=== PATIENT | female | born 2000 | race Caucasian/White ===

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

== ENCOUNTER 2023-06-28 18:53 | Emergency (ER) | payer MEDICAID ==
--- NOTE | 2023-06-28 19:23 | ED ---
URI HPI - General Chief Complaint: Upper Respiratory Infection Stated Complaint: chest pains/fabrizio Time Seen by Provider: 06/28/23 19:13 Source: patient Mode of arrival: ambulatory Limitations: no limitations - History of Present Illness Initial Comments: 22-year-old transgender male presenting with chief complaint cough and rib pain. They state that this has been ongoing for 3 days. They admit to sore throat and congestion. Pain is sharp in nature and worse with coughing and deep breaths. No fevers. No nausea vomiting or abdominal pain. No lower extremity swelling. No recent surgery or long travel. No dizziness. - Related Data Home Medications Medication Instructions Recorded Confirmed Citalopram Hydrobromide [CeleXA] 20 mg PO DAILY 10/07/19 10/07/19 Levothyroxine Sodium [Synthroid] 88 mcg PO DAILY 10/07/19 10/07/19 Multivitamins, Thera [Multivitamin 1 tab PO DAILY 10/07/19 10/07/19 (formulary)] Previous Rx's Medication Instructions Recorded Dicyclomine [Bentyl] 20 mg PO QID #15 tablet 04/27/21 methylPREDNISolone Dose Pack 4 mg PO DIRECTED #1 packet 06/28/23 [Medrol Dose Pack] Allergies Allergy/AdvReac Type Severity Reaction Status Date / Time No Known Allergies Allergy Verified 06/28/23 19:00 Review of Systems ROS Statement: Those systems with pertinent positive or pertinent negative responses have been documented in the HPI. ROS Other: All systems not noted in ROS Statement are negative. Past Medical History Past Medical History: No Reported History Additional Past Medical History / Comment(s): meningitis History of Any Multi-Drug Resistant Organisms: None Reported Past Surgical History: Ear Surgery Past Psychological History: ADD/ADHD, Depression Smoking Status: Current every day smoker Past Alcohol Use History: None Reported Past Drug Use History: None Reported General Exam Limitations: no limitations General appearance: alert, in no apparent distress Head exam: Present: atraumatic, normocephalic Eye exam: Present: normal appearance Neck exam: Present: normal inspection. Absent: meningismus Respiratory exam: Present: normal lung sounds bilaterally, chest wall tenderness. Absent: respiratory distress, wheezes, rales, rhonchi, stridor Cardiovascular Exam: Present: regular rate, normal rhythm, normal heart sounds. Absent: systolic murmur, diastolic murmur, rubs, gallop, clicks Extremities exam: Absent: pedal edema Neurological exam: Present: alert, oriented X3 Psychiatric exam: Present: normal affect, normal mood Skin exam: Present: warm, dry Course Vital Signs 06/28/23 06/28/23 06/28/23 18:57 19:15 21:40 Temperature 98.7 F 99.3 F Pulse Rate 104 H 88 Respiratory 20 18 18 Rate Blood Pressure 109/71 O2 Sat by Pulse 100 99 Oximetry 06/28/23 22:22 Temperature 98.6 F Pulse Rate 97 Respiratory 18 Rate Blood Pressure 101/66 O2 Sat by Pulse Oximetry Medical Decision Making - Medical Decision Making Was pt. sent in by a medical professional or institution (, PA, MANAGER GOLF, urgent care, hospital, or correction...) When possible be specific @ -No Did you speak to anyone other than the patient for history (EMS, parent, family, police, friend...)? What history was obtained from this source @ -No Did you review nursing and triage notes (agree or disagree)? Why? @ -I reviewed and agree with nursing and triage notes Were old charts reviewed (outside hosp., previous admission, EMS record, old EKG, old radiological studies, urgent care reports/EKG's, correction records)? Report findings @ -No old charts were reviewed Differential Diagnosis (chest pain, altered mental status, abdominal pain women, abdominal pain men, vaginal bleeding, weakness, fever, dyspnea, syncope, headache, dizziness, GI bleed, back pain, seizure, CVA, palpatations, mental health, musculoskeletal)? @ -Differential includes influenza, RSV, COVID, group A strep, pneumonia, bronchitis, pleurisy, pulmonary embolism, this is not an all-inclusive list EKG interpreted by me (3pts min.). @ -As above X-rays interpreted by me (1pt min.). @ -Chest x-ray shows no acute process. CT interpreted by me (1pt min.). @ -None done U/S interpreted by me (1pt. min.). @ -None done What testing was considered but not performed or refused? (CT, X-rays, U/S, labs)? Why? @ -None What meds were considered but not given or refused? Why? @ -None Did you discuss the management of the patient with other professionals (professionals i.e. , PA, MANAGER GOLF, lab, RT, psych nurse, director of social services, tool crib clerk, teacher, mechanical engineering officer, watch case polisher)? Give summary @ -No Was smoking cessation discussed for >3mins.? @ -No Was critical care preformed (if so, how long)? @ -No Were there social determinants of health that impacted care today? How? (Homelessness, low income, unemployed, alcoholism, drug addiction, transportation, low edu. Level, literacy, decrease access to med. care, chcf, rehab)? @ -No Was there de-escalation of care discussed even if they declined (Discuss DNR or withdrawal of care, Hospice)? DNR status @ -No What co-morbidities impacted this encounter? (DM, HTN, Smoking, COPD, CAD, Cancer, CVA, ARF, Chemo, Hep., AIDS, mental health diagnosis, sleep apnea, morbid obesity)? @ -None Was patient admitted / discharged? Hospital course, mention meds given and route, prescriptions, significant lab abnormalities, going to OR and other pertinent info. @ -22-year-old transgender male presenting with chief complaint of cough and rib pain. History and physical exam are conducted. Pain is worse on palpation. No lower extremity swelling. Heart and lungs are clear to auscultation. Negative for influenza, RSV, COVID, group A strep. Chest x-ray shows no acute process. Patient is treated with Toradol, Decadron, Tylenol, and IV fluids. Symptoms seem to clinically align with bronchitis and/or pleurisy. they are educated on today's findings and supportive management at home. Provided with Medrol Dosepak. Discharged home. Follow-up with PCP. Report back to ER with any new or worsening symptoms. Discussed return parameters and answered all questions. Patient conveyed verbal understanding and agreed to the plan. I discussed this case in detail with my attending Dr. Roldan Undiagnosed new problem with uncertain prognosis? @ -No Drug Therapy requiring intensive monitoring for toxicity (Heparin, Nitro, Insulin, Cardizem)? @ -No Were any procedures done? @ -No Diagnosis/symptom? @ -Bronchitis Acute, or Chronic, or Acute on Chronic? @ -Acute Uncomplicated (without systemic symptoms) or Complicated (systemic symptoms)? @ -Uncomplicated Side effects of treatment? @ -No Exacerbation, Progression, or Severe Exacerbation? @ -No Poses a threat to life or bodily function? How? (Chest pain, [place], [place], pneumonia, PE, COPD, DKA, ARF, appy, cholecystitis, CVA, Diverticulitis, Homicidal, Suicidal, threat to staff... and all critical care pts) @ -Low likelihood - Lab Data Lab Results 06/28/23 06/28/23 Range/Units 19:23 19:23 Influenza Type A (PCR) Not Detected (Not Detectd) Influenza Type B (PCR) Not Detected (Not Detectd) RSV (PCR) Not Detected (Not Detectd) SARS-CoV-2 (PCR) Not Detected (Not Detectd) Group A Strep (PCR) NOT DETECTED (Not Detectd) Disposition Clinical Impression: Bronchitis Disposition: HOME SELF-CARE Condition: Good Instructions (If sedation given, give patient instructions): Acute Bronchitis (ED) Additional Instructions: Follow-up with PCP. Report back to ER with any new or worsening symptoms. Prescriptions: methylPREDNISolone Dose Pack [Medrol Dose Pack] 4 mg PO DIRECTED #1 packet Is patient prescribed a controlled substance at d/c from ED?: No Referrals: Kenya Lamas DO [Primary Care Provider] - 1-2 days Time of Disposition: 22:05
[2023-06-28 19:26] VITALS: RESP 18
[2023-06-28] MEDS: KETOROLAC 15 MG/ML 1 ML VIAL IM STA (20:21)
[2023-06-28] MEDS: DEXAMETHASONE SOD PHOSPHATE 10 MG/ML 1 ML VIAL IM STA (20:23)
--- NOTE | 2023-06-28 20:57 | XR ---
EXAMINATION TYPE: XR chest 2V DATE OF EXAM: 06/28/2023 8:28 PM CLINICAL INDICATION:Unknown, 22 years old with history of cough; [facility] COMPARISON: None TECHNIQUE: XR chest 2V. Frontal and lateral views of the chest.. FINDINGS: Lines/Tubes/Devices: No indwelling lines are seen. Heart/mediastinum: Heart size is normal. Mediastinum appears normal. Pulmonary vascularity: Not increased, Lungs/Pleura: There is no evidence of pleural effusion, focal consolidation, or pneumothorax. Musculoskeletal: No acute osseous abnormality demonstrated in the limits of the exam. Other findings: None. IMPRESSION: No acute cardiopulmonary abnormality.
[2023-06-28] MEDS: ACETAMINOPHEN TAB 500 MG TAB PO STA (21:28)
[2023-06-28] MEDS: SODIUM CHLORIDE 0.9% 500 ML 500 ML IV ONE (21:29)
[2023-06-28 22:46] VITALS: BP 101/66; PULSE 97; TEMP 98.6
== END 2023-06-28 22:22 | disposition home or self-care (01) ==
LOC: EDSEX → EC 18:53 → EDSEX 18:53 → EC 22:22
DX: J40 Bronchitis, not specified as acute or chronic (principal); F17.200 Nicotine dependence, unspecified, uncomplicated
CPT/HCPCS: 99285; 96372 ×2; 87651; 87636; 71046; 96360; J1100; J1885; 96361

== ENCOUNTER 2023-09-01 18:33 | Emergency (ER) | payer MEDICAID, BC ==
[2023-09-01 19:00] VITALS: TEMP 98.4
--- NOTE | 2023-09-01 19:42 | ED ---
Headache HPI - General Source: RN notes reviewed Mode of arrival: ambulatory Limitations: no limitations <Hui Hoskins - Last Filed: 09/01/23 19:40> <Kane Peter - Last Filed: 09/02/23 21:24> - General Chief Complaint: Headache Stated Complaint: Headache Time Seen by Provider: 09/01/23 19:40 - History of Present Illness Initial Comments: Quick [id number] female with history of meningitis presenting to the ER with chief complaint of headache x 1 week. Patient was sent by urgent care for CT scan of head as they told her they were concerned for brain aneurysm or bleed. Patient reports she has been having severe left-sided headaches for 1 month but for the past week it has gotten worse and is radiating into her neck. She also reports the entire left side of her face is numb. Denies fevers, URI symptoms. (Hui Hoskins) 23-year-old female with chronic headache history. History of headaches since a child. She has had a persistent 1 week left-sided headache. This was slow in onset, not the worst headache of her life but is more severe than typical. Patient was sent for from urgent care for evaluation. Patient does report that she had some facial numbness earlier in the week but this is resolved. Disregard the previous note that her face is persistently numb. He has no limb weakness or numbness. (Kane Peter) - Related Data Home Medications Medication Instructions Recorded Confirmed Citalopram Hydrobromide [CeleXA] 20 mg PO DAILY 10/07/19 10/07/19 Levothyroxine Sodium [Synthroid] 88 mcg PO DAILY 10/07/19 10/07/19 Multivitamins, Thera [Multivitamin 1 tab PO DAILY 10/07/19 10/07/19 (formulary)] Previous Rx's Medication Instructions Recorded Dicyclomine [Bentyl] 20 mg PO QID #15 tablet 04/27/21 methylPREDNISolone Dose Pack 4 mg PO DIRECTED #1 packet 06/28/23 [Medrol Dose Pack] Allergies Allergy/AdvReac Type Severity Reaction Status Date / Time No Known Allergies Allergy Verified 09/01/23 18:49 Review of Systems ROS Other: All systems not noted in ROS Statement are negative. <Hui Hoskins - Last Filed: 09/01/23 19:40> ROS Other: All systems not noted in ROS Statement are negative. <Kane Peter - Last Filed: 09/02/23 21:24> ROS Statement: Those systems with pertinent positive or pertinent negative responses have been documented in the HPI. Past Medical History Past Medical History: No Reported History Additional Past Medical History / Comment(s): meningitis History of Any Multi-Drug Resistant Organisms: None Reported Past Surgical History: Ear Surgery Past Psychological History: ADD/ADHD, Depression Smoking Status: Current every day smoker Past Alcohol Use History: None Reported Past Drug Use History: None Reported <Hui Hoskins - Last Filed: 09/01/23 19:40> General Exam Limitations: no limitations <Hui Hoskins - Last Filed: 09/01/23 19:40> General appearance: alert, in no apparent distress Head exam: Present: atraumatic, normocephalic Eye exam: Present: normal appearance, PERRL, EOMI ENT exam: Present: normal exam Neck exam: Present: normal inspection. Absent: tenderness, meningismus Respiratory exam: Present: normal lung sounds bilaterally. Absent: respiratory distress, wheezes Cardiovascular Exam: Present: regular rate, normal rhythm GI/Abdominal exam: Present: soft. Absent: distended, tenderness Extremities exam: Present: normal inspection, normal capillary refill. Absent: pedal edema Neurological exam: Present: alert, oriented X3, CN II-XII intact. Absent: motor sensory deficit Psychiatric exam: Present: normal affect, normal mood Skin exam: Present: warm, dry, intact. Absent: cyanosis, diaphoretic <Kane Peter - Last Filed: 09/02/23 21:24> - General Exam Comments Initial Comments: Visual Physical Exam Vital signs reviewed General: Well-appearing, nontoxic, no acute distress. Head: Normocephalic, atraumatic Eyes: PERRLA, EOMI ENT: Airway patent Chest: Nonlabored breathing Skin: No visual rash, normal skin tone Neuro: Alert and oriented 3 Musculoskeletal: No gross abnormalities (Hui Hoskins) Course Vital Signs 09/01/23 09/01/23 09/01/23 18:46 22:46 23:35 Temperature 98.4 F Pulse Rate 98 85 86 Respiratory 18 17 18 Rate Blood Pressure 113/76 117/70 112/60 O2 Sat by Pulse 100 100 100 Oximetry Medical Decision Making <GatoHui - Last Filed: 09/01/23 19:40> - Lab Data Result diagrams: 09/01/23 22:33 09/01/23 22:33 <AnnelieseKane maldonado Mady - Last Filed: 09/02/23 21:24> - Medical Decision Making I completed the quick note portion of this chart signed Hui Hoskins PA-C (Hui Hoskins) Was pt. sent in by a medical professional or institution ([facility] [place], HEAD PIECE ASSEMBLER, urgent care, hospital, or chcf...) When possible be specific @ -No Did you speak to anyone other than the patient for history (EMS, parent, family, police, friend...)? What history was obtained from this source @ -No Did you review nursing and triage notes (agree or disagree)? Why? @ -I reviewed and agree with nursing and triage notes Were old charts reviewed (outside hosp., previous admission, EMS record, old EKG, old radiological studies, urgent care reports/EKG's, chcf records)? Report findings @ -No old charts were reviewed Differential Headache: Migraine, tension, cluster, carbon monoxide, central venous thrombosis, pension karma temporal arteritis, acute closure glaucoma, intercranial hemorrhage, mastoiditis, sinusitis, head injury, this is not meant to be an all-inclusive list. EKG interpreted by me (3pts min.). @ -As above X-rays interpreted by me (1pt min.). @ -None done CT interpreted by me (1pt min.). @CT brain negative for intracranial hemorrhage or mass effect U/S interpreted by me (1pt. min.). @ -None done What testing was considered but not performed or refused? (CT, X-rays, U/S, labs)? Why? @ -None What meds were considered but not given or refused? Why? @ -None Did you discuss the management of the patient with other professionals (professionals i.e. [facility] [place], HEAD PIECE ASSEMBLER, lab, RT, psych nurse, child protective services social worker, solar lab technician, teacher, senior compliance officer, case repairer)? Give summary @ -No Was smoking cessation discussed for >3mins.? @ -No Was critical care preformed (if so, how long)? @ -No Were there social determinants of health that impacted care today? How? (Ho melessness, low income, unemployed, alcoholism, drug addiction, transportation, low edu. Level, literacy, decrease access to med. care, skilled nursing, rehab)? @ -No Was there de-escalation of care discussed even if they declined (Discuss DNR or withdrawal of care, Hospice)? DNR status @ -No What co-morbidities impacted this encounter? (DM, HTN, Smoking, COPD, CAD, Cancer, CVA, ARF, Chemo, Hep., AIDS, mental health diagnosis, sleep apnea, morbid obesity)? @ -Headaches Was patient admitted / discharged? Hospital course, mention meds given and route, prescriptions, significant lab abnormalities, going to OR and other pertinent info. @ -[23-year-old female with chronic headache presenting with chief complaint of left-sided headache. No alarming features on history and physical. Patient was sent from urgent care for evaluation. CT was ordered and was negative for intracranial hemorrhage or mass effect. Normal laboratory testing. Patient reevaluated and feeling better after medical treatment. She should follow-up with her primary and will likely require further evaluation as an outpatient. Undiagnosed new problem with uncertain prognosis? @ -No Drug Therapy requiring intensive monitoring for toxicity (Heparin, Nitro, Insulin, Cardizem)? @ -No Were any procedures done? @ -No Diagnosis/symptom? @ -[Chronic headache Acute, or Chronic, or Acute on Chronic? @ -Chronic Uncomplicated (without systemic symptoms) or Complicated (systemic symptoms)? @ -Default Side effects of treatment? @ -No Exacerbation, Progression, or Severe Exacerbation? @ -No Poses a threat to life or bodily function? How? (Chest pain, [place], [place], pneumonia, PE, COPD, DKA, ARF, appy, cholecystitis, CVA, Diverticulitis, Homicidal, Suicidal, threat to staff... and all critical care pts) @ -No (Kane Peter) - Lab Data Lab Results 09/01/23 09/01/23 Range/Units 22:33 22:33 WBC 6.8 (3.8-10.6) k/uL RBC 4.15 (3.80-5.40) m/uL Hgb 11.6 (11.4-16.0) gm/dL Hct 35.9 (34.0-46.0) % MCV 86.5 (80.0-100.0) fL MCH 28.0 (25.0-35.0) pg MCHC 32.4 (31.0-37.0) g/dL RDW 13.4 (11.5-15.5) % Plt Count 301 (150-450) k/uL MPV 7.7 Neutrophils % 50 % Lymphocytes % 37 % Monocytes % 6 % Eosinophils % 4 % Basophils % 1 % Neutrophils # 3.4 (1.3-7.7) k/uL Lymphocytes # 2.5 (1.0-4.8) k/uL Monocytes # 0.4 (0-1.0) k/uL Eosinophils # 0.3 (0-0.7) k/uL Basophils # 0.1 (0-0.2) k/uL Sodium 137 (137-145) mmol/L Potassium 3.7 (3.5-5.1) mmol/L Chloride 111 H (98-107) mmol/L Carbon Dioxide 21 L (22-30) mmol/L Anion Gap 5 mmol/L BUN 12 (7-17) mg/dL Creatinine 0.59 (0.52-1.04) mg/dL Est GFR (CKD-EPI)AfAm >90 (>60 ml/min/1.73 sqM) Est GFR (CKD-EPI)NonAf >90 (>60 ml/min/1.73 sqM) Glucose 86 (74-99) mg/dL Calcium 8.5 (8.4-10.2) mg/dL Total Bilirubin 0.5 (0.2-1.3) mg/dL AST 20 (14-36) U/L ALT 11 (4-34) U/L Alkaline Phosphatase 56 (38-126) U/L Total Protein 6.7 (6.3-8.2) g/dL Albumin 3.9 (3.5-5.0) g/dL Disposition <Hui Hoskins - Last Filed: 09/01/23 19:40> Is patient prescribed a controlled substance at d/c from ED?: No Time of Disposition: 23:21 <Kane Peter - Last Filed: 09/02/23 21:24> Clinical Impression: Headache Disposition: HOME SELF-CARE Condition: Good Instructions (If sedation given, give patient instructions): Acute Headache (ED) Referrals: Kenya Lamas DO [Primary Care Provider] - 1-2 days
--- NOTE | 2023-09-01 21:35 | CT ---
EXAMINATION TYPE: CT brain wo con CT DLP: 1095.6 mGycm, Automated exposure control for dose reduction was used. DATE OF EXAM: 09/01/2023 8:36 PM COMPARISON: None.. CLINICAL INDICATION:Female, 23 years old with history of Headache, left sided numbness, HEADACHE TECHNIQUE: Brain: Axial CT images of the brain were obtained with coronal and sagittal reformats created and rev iewed. Contrast used: None. Oral contrast used: None. FINDINGS: Extra-axial spaces: No abnormal extra-axial fluid collections. Basilar cisterns are patent. Ventricular system: Within normal limits. Cerebral parenchyma: No increased attenuation to suggest acute intraparenchymal hemorrhage. The gra y-white matter interface appears maintained. No significant atrophy. White matter unremarkable by C T. Cerebellum: No acute abnormality. Mass effect: No evidence of mass effect or midline shift. Intracranial vasculature: Unremarkable Soft tissues: No acute or concerning abnormality. Visualized orbits: Orbital contents appear grossly intact. Calvarium/osseous structures: No evidence of calvarial fracture. Partially seen is incomplete fusion along the midline arch posteriorly at C1. Paranasal sinuses and mastoid air cells: Clear. MRI is more sensitive for detecting acute processes such as infarct, and may be considered if clinica lly warranted. IMPRESSION: No acute intracranial CT abnormality.
[2023-09-01] MEDS: KETOROLAC 15 MG/ML 1 ML VIAL IVP STA (22:41)
[2023-09-01] MEDS: SODIUM CHLORIDE 0.9% 1,000 ML IV ONE (22:41)
[2023-09-01] MEDS: METOCLOPRAMIDE 5 MG/ML 2 ML VIAL IVP STA (22:42)
[2023-09-01 22:46] LABS: Basophils # (A) 0.1 k/uL (0-0.2); Basophils % (A) 1 %; Eosinophils # (A) 0.3 k/uL (0-0.7); Eosinophils % (A) 4 %; HCT 35.9 % (34.0-46.0); HGB 11.6 gm/dL (11.4-16.0); Lymphocytes # (A) 2.5 k/uL (1.0-4.8); Lymphocytes % (A) 37 %; MCHC 32.4 g/dL (31.0-37.0); MCV 86.5 fL (80.0-100.0); Mean Platelet Volume 7.7; Monocytes # (A) 0.4 k/uL (0-1.0); Monocytes % (A) 6 %; Neutrophils # (A) 3.4 k/uL (1.3-7.7); Neutrophils % (A) 50 %; Platelet Count 301 k/uL (150-450); RBC 4.15 m/uL (3.80-5.40); RDW 13.4 % (11.5-15.5); WBC 6.8 k/uL (3.8-10.6)
[2023-09-01 23:09] LABS: ALT 11 U/L (4-34); AST 20 U/L (14-36); African American GFR (CKD) >90 (>60 ml/min/1.73 sqM); Albumin 3.9 g/dL (3.5-5.0); Alkaline Phosphatase 56 U/L (38-126); Anion Gap 5 mmol/L; Blood Urea Nitrogen 12 mg/dL (7-17); Calcium 8.5 mg/dL (8.4-10.2); Carbon Dioxide 21 mmol/L (22-30); Chloride 111 mmol/L (98-107); Glucose 86 mg/dL (74-99); Non-African American GFR(CKD) >90 (>60 ml/min/1.73 sqM); Potassium 3.7 mmol/L (3.5-5.1); Sodium 137 mmol/L (137-145); Total Bilirubin 0.5 mg/dL (0.2-1.3); Total Protein 6.7 g/dL (6.3-8.2)
[2023-09-01 23:59] VITALS: BP 112/60; PULSE 86; RESP 18
== END 2023-09-01 23:36 | disposition home or self-care (01) ==
LOC: EC 18:33
DX: G89.29 Other chronic pain (principal); R51.9 Headache, unspecified; F17.200 Nicotine dependence, unspecified, uncomplicated
CPT/HCPCS: 36415; 80053; 85025; 70450; 99284; 96374; 96375; 96361; J2765; J1885

== ENCOUNTER → 2023-09-22 | Outpatient (CLI) | payer MEDICAID, BC ==
--- NOTE | 2023-09-22 10:50 | MR ---
EXAMINATION TYPE: MR brain wo/w con DATE OF EXAM: 09/22/2023 COMPARISON: CT brain 09/01/2023 HISTORY: Headaches, tremors, facial numbness CONTRAST: Performed utilizing 6 mL intravenous Gadavist gadolinium contrast. TECHNIQUE: Multiplanar, multiecho imaging on a 3.0 Bessy magnet is performed through the brain. Stud y is performed within 24 hours of arrival to the hospital. The craniovertebral junction is normal. The pituitary is normal. Diffusion-weighted imaging is performed. No abnormal hyperintensity is present to suggest an acute i ntracranial infarct or acute ischemic change. Signal within the brain appears normal. Ventricles and sulci are appropriate for the patient age. No abnormal enhancement is evident. There is some mucosal thickening through the left maxillary sinus. Opacification is through ethmoid a ir cells. Frontal sinuses sphenoid sinuses appear clear. IMPRESSION: 1. No acute intracranial process. 2. Clinical correlation recommended for chronic sinusitis
== END | disposition home or self-care (01) ==
LOC: RADMRIMAIN 09:13
PROVIDERS: ATTEND Family Medicine
DX: G44.209 Tension-type headache, unspecified, not intractable (principal); J32.9 Chronic sinusitis, unspecified
CPT/HCPCS: 70553; A9585

== ENCOUNTER 2024-01-25 10:10 | Emergency (ER) | payer MEDICAID, BC ==
[2024-01-25 10:37] VITALS: TEMP 98.6
--- NOTE | 2024-01-25 10:40 | ED ---
Chest Pain HPI - General Source: patient, RN notes reviewed Mode of arrival: ambulatory Limitations: no limitations <Kendra Lopez - Last Filed: 01/25/24 10:38> - General Source: patient, RN notes reviewed Mode of arrival: ambulatory Limitations: no limitations <Madeline Bettencourt - Last Filed: 01/27/24 17:24> - General Chief Complaint: Chest Pain Stated Complaint: chest pain/low blood pressure Time Seen by Provider: 01/25/24 10:25 - History of Present Illness Initial Comments: Quick [id number] female presenting to the emergency department chief complaint of chest pain described as a burning sensation and pressure that started at 830 this morning. She endorses nausea with episode of emesis. Endorses chills. Denies abdominal pain, shortness of breath. (Kendra Lopez) 23-year-old female presenting to the ER with a chief complaint of chest discomfort. She states she started to feel a pressure/burning chest discomfort around 830 this morning. She endorses nausea with vomiting during this episode. She states during this she was also having some shortness of breath. Patient also reports she has not had a normal bowel movement in approximately 1 week. She does admit to diarrhea and lower abdominal pain. Patient denies any fevers, chills, urinary complaints or peripheral edema. No history of blood clots. (Madeline Bettencourt) - Related Data Home Medications Medication Instructions Recorded Confirmed No Known Home Medications 01/25/24 01/25/24 Allergies Allergy/AdvReac Type Severity Reaction Status Date / Time No Known Allergies Allergy Verified 01/25/24 14:16 Review of Systems ROS Other: All systems not noted in ROS Statement are negative. <Kendra Lopez - Last Filed: 01/25/24 10:38> ROS Other: All systems not noted in ROS Statement are negative. <Madeline Bettencourt - Last Filed: 01/27/24 17:24> ROS Statement: Those systems with pertinent positive or pertinent negative responses have been documented in the HPI. EKG Findings - EKG Comments: EKG Findings:: EKG taken at 10: 53 showing a sinus rhythm with sinus arrhythmia. No acute ST segment or T wave abnormalities. Ventricular rate 83, RI interval 154, QRS duration 72, QT/QTc 363/402. <Madeline Bettencourt - Last Filed: 01/27/24 17:24> Past Medical History Past Medical History: No Reported History Additional Past Medical History / Comment(s): meningitis History of Any Multi-Drug Resistant Organisms: None Reported Past Surgical History: Ear Surgery Past Psychological History: ADD/ADHD, Depression Smoking Status: Current every day smoker Past Alcohol Use History: None Reported Past Drug Use History: None Reported <Kendra Lopez - Last Filed: 01/25/24 10:38> General Exam Limitations: no limitations <Kendra Lopez - Last Filed: 01/25/24 10:38> General appearance: alert, in no apparent distress Respiratory exam: Present: normal lung sounds bilaterally. Absent: respiratory distress, wheezes, rales, rhonchi, stridor Cardiovascular Exam: Present: regular rate, normal rhythm, normal heart sounds. Absent: systolic murmur, diastolic murmur, rubs, gallop, clicks GI/Abdominal exam: Present: soft, tenderness (Generalized), normal bowel sounds Neurological exam: Present: alert, oriented X3, CN II-XII intact Skin exam: Present: warm, dry, intact, normal color. Absent: rash <Madeline Bettencourt - Last Filed: 01/27/24 17:24> - General Exam Comments Initial Comments: Visual Physical Exam Vital signs reviewed General: Well-appearing, nontoxic, no acute distress. Head: Normocephalic, atraumatic Eyes: PERRLA, EOMI ENT: Airway patent Chest: Nonlabored breathing Skin: No visual rash, normal skin tone Neuro: Alert and oriented 3 Musculoskeletal: No gross abnormalities (Kendra Lopez) Course Vital Signs 01/25/24 01/25/24 10:34 14:24 Temperature 98.6 F Pulse Rate 79 71 Respiratory 18 16 Rate Blood Pressure 110/71 117/72 O2 Sat by Pulse 99 100 Oximetry Chest Pain MDM <Kendra Lopez - Last Filed: 01/25/24 10:38> <Madeline Bettencourt - Last Filed: 01/27/24 17:24> - MDM I completed the quick note portion of this chart signed Kendra Lopez PA-C (Kendra Lopez) Was pt. sent in by a medical professional or institution ([facility] [place], [employer], urgent care, hospital, or [facility]...) When possible be specific @ -No Did you speak to anyone other than the patient for history (EMS, parent, family, police, friend...)? What history was obtained from this source @ -No Did you review nursing and triage notes (agree or disagree)? Why? @ -I reviewed and agree with nursing and triage notes Were old charts reviewed (outside hosp., previous admission, EMS record, old EKG, old radiological studies, urgent care reports/EKG's, [facility] records)? Report findings @ -No old charts were reviewed Differential Diagnosis (chest pain, altered mental status, abdominal pain women, abdominal pain men, vaginal bleeding, weakness, fever, dyspnea, syncope, headache, dizziness, GI bleed, back pain, seizure, CVA, palpatations, mental health, musculoskeletal)? @ -[Differential Chest Pain:Stable Angina, Unstable Angina, STEMI, NSTEMI Aortic Dissection, Pneumothorax, Musculoskeletal, Esophageal Spasm GERD, Cholecystitis, Pancreatitis, Zoster, this is not meant to be an all-inclusive list. EKG interpreted by me (3pts min.). @ -As above X-rays interpreted by me (1pt min.). @ -CXR interpreted me negative for acute cardiopulmonary process. KUB showing a nonspecific gas bowel pattern. Mild stool burden. CT interpreted by me (1pt min.). @ -None done U/S interpreted by me (1pt. min.). @ -None done What testing was considered but not performed or refused? (CT, X-rays, U/S, labs)? Why? @ -None What meds were considered but not given or refused? Why? @ -None Did you discuss the management of the patient with other professionals (professionals i.e. , [facility], [employer], lab, RT, psych nurse, social welfare research worker, import specialist, teacher, tax revenue officer, case management associate)? Give summary @ -No Was smoking cessation discussed for >3mins.? @ -No Was critical care preformed (if so, how long)? @ -No Were there social determinants of health that impacted care today? How? (Homelessness, low income, unemployed, alcoholism, drug addiction, transportation, low edu. Level, literacy, decrease access to med. care, skilled nursing, rehab)? @ -No Was there de-escalation of care discussed even if they declined (Discuss DNR or withdrawal of care, Hospice)? DNR status @ -No What co-morbidities impacted this encounter? (DM, HTN, Smoking, COPD, CAD, Cancer, CVA, ARF, Chemo, Hep., AIDS, mental health diagnosis, sleep apnea, morbid obesity)? @ -None Was patient admitted / discharged? Hospital course, mention meds given and route, prescriptions, significant lab abnormalities, going to OR and other pertinent info. @ -Discharge. 23-year-old female presented to the ER with a chief complaint of chest discomfort. History and physical exam completed. Vitals stable. Patient no signs of acute distress. Laboratory studies obtained unremarkable. Troponin undetectable. EKG showing a sinus rhythm with sinus arrhythmia no acute evidence of infarct. KUB also reported as patient reporting generalized abdominal pain. KUB showing moderate stool burden related to constipation. Pain believed to be GERD I advised [id number] omeprazole. Heart score 0. Patient stable for discharge. Strict return parameters discussed. Patient discharged in stable condition with follow-up to PCP. Patient verbally expressed understanding and agreement with care plan. Case discussed with ED attending, Dr. James. Undiagnosed new problem with uncertain prognosis? @ -No Drug Therapy requiring intensive monitoring for toxicity (Heparin, Nitro, Insulin, Cardizem)? @ -No Were any procedures done? @ -No Diagnosis/symptom? @ -Chest discomfort Acute, or Chronic, or Acute on Chronic? @ -Acute Uncomplicated (without systemic symptoms) or Complicated (systemic symptoms)? @ -Uncomplicated Side effects of treatment? @ -No Exacerbation, Progression, or Severe Exacerbation? @ -No Poses a threat to life or bodily function? How? (Chest pain, [place], [place], pneumonia, PE, COPD, DKA, ARF, appy, cholecystitis, CVA, Diverticulitis, Homicidal, Suicidal, threat to staff... and all critical care pts) @ -No (Madeline Bettencourt) Disposition <Kendra Lopez - Last Filed: 01/25/24 10:38> Is patient prescribed a controlled substance at d/c from ED?: No Time of Disposition: 14:13 <Madeline Bettencourt - Last Filed: 01/27/24 17:24> Clinical Impression: Chest discomfort Disposition: HOME SELF-CARE Condition: Stable Instructions (If sedation given, give patient instructions): Chest Pain (ED) Additional Instructions: Follow-up PCP. Recommend [id number] omeprazole. Return to the ER for any new or worsening concerns. Referrals: Kenya Lamas DO [Primary Care Provider] - 1-2 days
--- NOTE | 2024-01-25 10:53 | XR ---
EXAMINATION TYPE: XR chest 2V DATE OF EXAM: 01/25/2024 10:48 AM COMPARISON: Chest radiographs from 06/28/2023 TECHNIQUE: XR chest 2V Frontal and lateral views of the chest. CLINICAL INDICATION:Female, 23 years old with history of chest pain; FINDINGS: Lungs/Pleura: There is no evidence of pleural effusion, focal consolidation, or pneumothorax. Pulmonary vascularity: Unremarkable. Heart/mediastinum: Cardiomediastinal silhouette is unremarkable. Musculoskeletal: No acute osseous pathology. IMPRESSION: No acute cardiopulmonary disease/process. [facility], , 01/25/2024 10:51 AM
[2024-01-25 11:10] LABS: Basophils % (A) 0 %; Eosinophils # (A) 0.1 k/uL (0-0.7); Eosinophils % (A) 1 %; HCT 36.6 % (34.0-46.0); HGB 12.2 gm/dL (11.4-16.0); Lymphocytes % (A) 14 %; MCH 28.1 pg (25.0-35.0); MCHC 33.3 g/dL (31.0-37.0); MCV 84.3 fL (80.0-100.0); Mean Platelet Volume 7.4; Monocytes # (A) 0.4 k/uL (0-1.0); Monocytes % (A) 5 %; Neutrophils # (A) 5.7 k/uL (1.3-7.7); Neutrophils % (A) 78 %; Platelet Count 332 k/uL (150-450); RBC 4.35 m/uL (3.80-5.40); RDW 13.7 % (11.5-15.5); WBC 7.3 k/uL (3.8-10.6)
[2024-01-25 11:35] LABS: ALT 17 U/L (4-34); AST 23 U/L (14-36); African American GFR (CKD) >90 (>60 ml/min/1.73 sqM); Albumin 4.4 g/dL (3.5-5.0); Alkaline Phosphatase 55 U/L (38-126); Amylase 71 U/L (30-110); Anion Gap 9 mmol/L; Blood Urea Nitrogen 8 mg/dL (7-17); Calcium 9.1 mg/dL (8.4-10.2); Carbon Dioxide 20 mmol/L (22-30); Chloride 110 mmol/L (98-107); Glucose 102 mg/dL (74-99); Lipase 81 U/L (23-300); Non-African American GFR(CKD) >90 (>60 ml/min/1.73 sqM); Sodium 139 mmol/L (137-145); Total Bilirubin 0.4 mg/dL (0.2-1.3); Total Protein 7.5 g/dL (6.3-8.2)
[2024-01-25 13:13] LABS: Appearance,Urine Clear (Clear); Bilirubin,Urine Negative (Negative); Blood,Urine Small (Negative); Color,Urine Colorless; Glucose,Urine (UA) Negative (Negative); Ketones,Urine Negative (Negative); Leukocyte Esterase,Urine Negative (Negative); Mucus,Urine Rare /hpf; Nitrite,Urine Negative (Negative); PH, Urine 5.5 (5.0-8.0); Protein,Urine Negative (Negative); RBC,Urine <1 /hpf (0-5); Specific Gravity,Urine 1.009 (1.001-1.035); Urobilinogen,Urine <2.0 mg/dL (<2.0); WBC,Urine <1 /hpf (0-5)
--- NOTE | 2024-01-25 13:52 | XR ---
EXAMINATION TYPE: XR KUB DATE OF EXAM: 01/25/2024 COMPARISON: KUB radiograph 04/26/2021, CT abdomen and pelvis 05/14/2021 HISTORY: Constipation TECHNIQUE: Upright supine KUB image of the abdomen is obtained FINDINGS: Small bowel demonstrates no evidence for dilatation or air fluid levels. Gas and fecal material is seen in mildly distended colon and rectum. No convincing evidence for pneumoperitoneum. No unusual calcifications. Lucency over the central pelvis may represent a tampon. The lung bases are clear. The osseous structures are intact. IMPRESSION: 1. Overall nonobstructive bowel gas pattern. 2. Mild to moderate colonic stool burden. [facility], , 01/25/2024 1:50 PM
[2024-01-25 14:25] VITALS: BP 117/72; PULSE 71; RESP 16
== END 2024-01-25 14:25 | disposition home or self-care (01) ==
LOC: EC 10:10
CPT/HCPCS: 36415; 71046; 74018; 80053; 81001; 81025; 82150; 83690; 84484; 85025; 93005; 99285